=== PATIENT | male | born 1950 | race Caucasian/White ===

== ENCOUNTER 2017-12-14 05:54 | Day surgery (SDC) | payer MEDICARE, BC ==
[2017-12-14] MEDS ORDERED: Midazolam 1 MG/ML 2 ML SDV IV ONE ×7 (05:55→06:59)
[2017-12-14] MEDS ORDERED: fentaNYL 100 MCG/2 ML SDV IV ONE ×3 (05:55→06:49)
[2017-12-14] MEDS ORDERED: Sodium Chloride 0.9% 10 ML Syringe FLUSH PRN (06:00)
[2017-12-14] MEDS ORDERED: Dextrose 5%-0.45% NaCl 1,000 ML IV SCH (06:00)
[2017-12-14] MEDS ORDERED: Midazolam 1 MG/ML 2 ML SDV ONE (06:09)
[2017-12-14] MEDS ORDERED: fentaNYL 100 MCG/2 ML SDV ONE (06:09)
--- NOTE | 2017-12-14 08:09 | OR ---
DATE: 12/14/2017 PROCEDURE: Total colonoscopy. INSTRUMENT USED: [id number]-H180AL Olympus video colonoscope. PREMEDICATIONS: Fentanyl 100 mcg intravenous, Versed 4 mg intravenous. Nasal O2 cannula. The procedure was done under pulse oximetry, BP recording, and cardiac surgeon. INDICATION: Screening colonoscopic examination is done for detection of any polypoid lesions and removal, endoscopic hemostasis therapy if needed. DESCRIPTION OF PROCEDURE: Initial rectal exam showed BPH. Rigid anoscopy was unremarkable. The colonoscope was passed with ease up to the ileocecal area, photographs were taken of the normal-appearing cecum, identified by landmarks of appendiceal orifice and double-bulged ileocecal folds. No bleeding was noted from any of the visualized areas at the commencement of the examination. No stricture. No vascular ectasia. No large isolated ulcerations seen. No evidence of diffuse inflammatory bowel disease in the form of friability, contact bleeding, or ulcerations. No polyp or tumor mass identified. Probing the proximal sides of folds and flexures, using adequate distention and clearing of the stool material, withdrawal of the scope was made. Cecum to rectum time over 6 minutes. No bleeding was noted from any of the visualized areas at the completion of examination. IMPRESSION: Normal study. The patient tolerated the procedure well. [facility] /[id number]
== END 2017-12-14 09:00 | disposition home or self-care (01) ==
LOC: DL.ENDO 05:54
PROVIDERS: ATTEND Internal Medicine Gastroenterology
DX: Z12.11 Encounter for screening for malignant neoplasm of colon (principal); I10 Essential (primary) hypertension; G35 Multiple sclerosis; R60.0 Localized edema
CPT/HCPCS: 45378; J2250; J3010; J7042